=== PATIENT | male | born 1995 | race Caucasian/White ===

== ENCOUNTER 2021-12-26 17:24 | Emergency (ER) | payer OTHER, SELFPAY ==
--- NOTE | ~2021-12-26 | XR_ITS ---
EXAM: XR hand RT min 3V DATE: 12/26/2021 18:38 HISTORY: right first finger laceration . COMPARISON: None available. FINDINGS: Normal mineralization. No fracture or dislocation. No lytic or blastic lesion. Joint space s are maintained. No erosion or periosteal change. Soft tissues within normal limits. IMPRESSION: No acute osseous finding in the right hand. Reviewed, dictated and finalized at location K.
[2021-12-26 17:48] VITALS: BP 118/78; PULSE 75; RESP 18; TEMP 37; O2SAT 99
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
[2021-12-26 19:51] VITALS: BP 126/90; PULSE 82; RESP 18; O2SAT 99
== END 2021-12-26 19:53 | disposition home or self-care (01) ==
PROVIDERS: Emergency Provider Emergency Medicine; PCP Family Medicine
DX: S61.011A Laceration without foreign body of right thumb without damage to nail, initial encounter (principal); W22.8XXA Striking against or struck by other objects, initial encounter
CPT/HCPCS: 12001; 73130; 99283

== ENCOUNTER 2022-02-15 19:10 | Emergency (ER) | payer OTHER, SELFPAY ==
--- NOTE | ~2022-02-15 | CT_ITS ---
EXAMINATION: CT abdomen pelvis w con DATE: 02/15/2022 22:52 INDICATION: upper abd pain TECHNIQUE: Computed tomography (CT) of the abdomen and pelvis was performed with 100 mL Omnipaque-350 intravenous contrast. Automated exposure control and iterative reconstruction technique were employe d. The dose-length product was 1121.95 mGy-cm. COMPARISON: 01/28/2010. FINDINGS: Lower thorax: Unremarkable Liver: Normal. Biliary/Gallbladder: Gallbladder is normal. No bile duct dilation. Pancreas: No mass or duct dilation. Spleen: Normal. Adrenals:No mass. Kidneys: No mass, stone, or hydronephrosis. GI tract: No small or large bowel dilation. Normal appendix. Mesentery/Peritoneum: No ascites, mass, or free air. Retroperitoneum: No mass. Pelvis: Pelvic organs are within normal limits. Soft Tissues: Soft tissues and body wall unremarkable. Small fat-containing right inguinal hernia Bones: No acute osseous finding. IMPRESSION: No acute abdominal pelvic process detected. Reviewed, dictated and finalized at location K.
--- NOTE | ~2022-02-15 | XR_ITS ---
EXAMINATION: XR chest 2V Exam Date/Time: 02/15/2022 19:40 CDT HISTORY: chest pain Comparison: None available. RESULT: Lines, tubes, and devices: None. Lungs and pleura: Clear. Cardiomediastinal silhouette: Normal. Other: No acute osseous or upper abdominal finding. IMPRESSION: No acute cardiopulmonary process. Reviewed, dictated and finalized at location K.
--- NOTE | 2022-02-15 19:11 | ECG_ITS ---
Measurements Intervals [place] Rate: 84 P: 40 LA: 134 QRS: 0 QRSD: 114 T: 30 QT: 354 QTc: 421 Interpretive Statements SINUS RHYTHM BORDERLINE R WAVE PROGRESSION, ANTERIOR LEADS MINIMAL Q WAVES- HIGH LATERAL LEADS BORDERLINE ECG NO PREVIOUS ECG AVAILABLE FOR COMPARISON Electronically Signed On 02-15-2022 21:05:32 CDT by Mack Sheikh D.O.
[2022-02-15 19:34] VITALS: BP 135/93; PULSE 90; RESP 20; TEMP 36.7; O2SAT 100
[2022-02-15 20:03] LABS: Eosinophils Percent Auto 0.1 % (0-4.4); Hematocrit 46.1 % (42.0-52.0); Immature Granulocyte Absolute 0.09 K/mm3 (0.00-0.031); Immature Granulocyte Percent A 1.2 % (0-0.5); Lymphocytes Absolute Auto 1.02 K/mm3 (0.9-3.2); Lymphocytes Percent Auto 13.7 % (18.3-44.2); Mean Corpuscular HGB Conc 34.7 g/dl (32-36); Mean Corpuscular Hemoglobin 30.5 pg (26-34); Mean Corpuscular Volume 87.8 fl (80-100); Mean Platelet Volume 9.9 fl (7.4-10.4); Monocytes Absolute Auto 0.9 K/mm3 (0.1-0.6); Neutrophils Absolute Auto 5.4 K/mm3 (1.3-6.7); Platelet Count Result 196 k/mm3 (150-375); Red Blood Count 5.25 M/mm3 (4.6-6.20); Red Cell Distribution Width 11.5 % (11.5-14.5); White Blood Count 7.4 K/mm3 (4.5-10.0)
[2022-02-15 20:12] LABS: Alanine Aminotransferase 40 U/L (6-50); Albumin Level 4.9 g/dL (3.5-5.1); Alkaline Phosphatase 58 U/L (38-126); Anion Gap 11 mmol/L (8-16); Aspartate Amino Transferase 30 U/L (17-59); Bilirubin,Total 0.7 mg/dL (0.2-1.3); Blood Urea Nitrogen 9 mg/dL (9-20); Calcium 9.1 mg/dL (8.4-10.2); Carbon Dioxide 28 mmol/L (22-30); Chloride 97 mmol/L (98-107); Estimated CRCL calculation 132 ml/min; Estimated Glomerular Filt Rate > 60; Glucose 106 mg/dL (65-110); Lipase 26 U/L (23-300); Potassium 3.4 mmol/L (3.4-5.0); Sodium 136 mmol/L (137-145)
[2022-02-15 20:13] LABS: INR 1.1; Prothrombin Time 13.8 Seconds (11.1-14.7)
[2022-02-15 20:22] LABS: Troponin I < 0.012 ng/mL (0.000-0.034)
[2022-02-15] MEDS: SODIUM CHLORIDE 0.9% IV 1,000 ML 999 ML IV CONT (22:37)
[2022-02-15 22:38] VITALS: BP 150/75; PULSE 78; RESP 18; TEMP 36.6; O2SAT 98
--- NOTE | 2022-02-15 22:46 | ED.GENADULT ---
HPI - General Adult General Chief complaint: Chest Pain Stated complaint: CHEST PAIN X2D. NO BOWEL MOVEMENT FOR 1D Time Seen by Provider: 02/15/22 22:08 History of Present Illness HPI narrative: 26-year-old male presents to the emergency room for multiple medical complaints. Patient states over the weekend he was drinking alcohol in excess, woke up the next day he was experiencing multiple episodes of vomiting and diarrhea. Patient took an [id number] antidiarrheal for 2 days, and has since been unable to have a bowel movement. Patient is presently complaining of upper abdominal pain that radiates into his chest and into his back. Denies fever. Patient states he has flatulent. Related Data Home Medications Medication Instructions Recorded Confirmed No Home Medications 09/30/19 01/05/22 Allergies Allergy/AdvReac Type Severity Reaction Status Date / Time sulfamethizole Allergy Unknown not sure Verified 01/05/22 08:38 Review of Systems Review of Systems: CONSTITUTIONAL: Denies fever, chills, or sweats. EYES: Denies visual changes, redness, or discharge. ENT: Denies rhinorrhea, congestion, sore throat, or otalgia. CARDIOVASCULAR: Reports chest pain RESPIRATORY: Denies cough or dyspnea. GASTROINTESTINAL: Reports upper abdominal pain, nausea, constipation GENITOURINARY: Denies dysuria or hematuria. SKIN: Denies rash or itching. MUSCULOSKELETAL: Denies back pain, joint pain, or myalgia. NEUROLOGIC: Denies headache, numbness, dizziness, or weakness. PSYCHIATRIC: Denies anxiety or depression. [facility] Past Medical History Medical History (Updated 02/15/22 @ 23:55 by Robe Perdomo APRN) Fracture of left femur Social History Social History Tobacco type: e-cigarettes/vaping Alcohol intake: current Exam Narrative: GENERAL: Well-appearing, well-nourished, no physical limitations, and in no acute distress. HEAD: Normocephalic, atraumatic. EYES: Conjunctivae normal, PERRLA and EOMI. CHEST: Clear to auscultation. No respiratory distress. No wheezes rales or rhonchi. HEART: Regular rate and rhythm. No murmur heard. Normal peripheral pulses. ABDOMEN: Soft, upper abdominal tenderness, nondistended, normal active bowel sounds. BACK: No CVA tenderness EXTREMITIES: Normal range of motion. No edema. No clubbing or cyanosis SKIN: Warm, dry, no rash. No noted wounds NEURO: No focal deficits. Alert and oriented x3. MAEW. CN's II-XI intact bilaterally, normal gait PSYCH: Cooperative. Normal mood and affect. Course Vital Signs Vital signs: Vital Signs Temperature 36.7 C 02/15/22 19:34 Pulse Rate 90 02/15/22 19:34 Respiratory Rate 20 02/15/22 19:34 Blood Pressure 135/93 H 02/15/22 19:34 Pulse Oximetry 100 02/15/22 19:34 Oxygen Delivery Room Air 02/15/22 19:34 Temperature 36.6 C 02/15/22 22:38 Pulse Rate 78 02/15/22 22:38 Respiratory Rate 18 02/15/22 22:38 Blood Pressure 150/75 H 02/15/22 22:38 Pulse Oximetry 98 02/15/22 22:38 Oxygen Delivery Room Air 02/15/22 22:38 Medical Decision Making Vital Signs Vital Signs: Vital Signs Temperature 36.7 C 02/15/22 19:34 Pulse Rate 90 02/15/22 19:34 Respiratory Rate 20 02/15/22 19:34 Blood Pressure 135/93 H 02/15/22 19:34 Pulse Oximetry 100 02/15/22 19:34 Oxygen Delivery Room Air 02/15/22 19:34 Temperature 36.6 C 02/15/22 22:38 Pulse Rate 78 02/15/22 22:38 Respiratory Rate 18 02/15/22 22:38 Blood Pressure 150/75 H 02/15/22 22:38 Pulse Oximetry 98 02/15/22 22:38 Oxygen Delivery Room Air 02/15/22 22:38 Lab Data Result diagrams: 02/15/22 19:53 02/15/22 19:53 Labs: Lab Results 02/15/22 02/15/22 02/15/22 Range/Units 19:53 19:53 19:53 WBC 7.4 (4.5-10.0) K/mm3 RBC 5.25 (4.6-6.20) M/mm3 Hgb 16.0 (14.0-18.0) g/dL Hct 46.1 (42.0-52.0) % MCV 87.8 (80-100) fl MCH 30
[2022-02-15 23:05] VITALS: PULSE 75; RESP 18; O2SAT 98
== END 2022-02-16 00:02 | disposition home or self-care (01) ==
PROVIDERS: Emergency Medicine; Emergency Provider Nurse Practitioner Family; PCP Family Medicine
DX: K59.00 Constipation, unspecified (principal); F17.290 Nicotine dependence, other tobacco product, uncomplicated
CPT/HCPCS: 36415; 71046; 74177; 80053; 83690; 84484; 85025; 85610; 85730; 93005; 96360; 99284; J7030; Q9967